=== PATIENT | female | born 1940 | race Caucasian/White ===

== ENCOUNTER 2021-10-04 23:17 | Emergency (ER) | payer MEDICARE ==
[2021-10-05] MEDS ORDERED: PERCOCET 5-3251 EACH PO (02:06)
[2021-10-05] MEDS ORDERED: MEDROL 4MG DOSEP4 MG PO (02:06)
== END 2021-10-05 02:30 | disposition home or self-care (01) ==
LOC: FER 23:17
DX: M85.841 Other specified disorders of bone density and structure, right hand (principal); Z88.0 Allergy status to penicillin
CPT/HCPCS: 73110; J1170; J2930